=== PATIENT | female | born 2000 | race Caucasian/White ===

== ENCOUNTER 2024-02-25 14:17 | Emergency (ER) | payer MEDICAID ==
[~2024-02-25] VITALS: Ht 157.5 cm; Wt 72.0 kg
[2024-02-25 14:28] VITALS: O2SAT 100
[2024-02-25] MEDS: IBUPROFEN 600MG TABLET PO ONE (15:15)
[2024-02-25 16:39] VITALS: BP 124/57; PULSE 72; RESP 18; TEMP 36.55848; O2SAT 100
== END 2024-02-25 16:52 | disposition home or self-care (01) ==
LOC: ER 14:17
DX: S13.4XXA Sprain of ligaments of cervical spine, initial encounter (principal); X58.XXXA Exposure to other specified factors, initial encounter; Y93.89 Activity, other specified; Y92.410 Unspecified street and highway as the place of occurrence of the external cause; Y99.8 Other external cause status
CPT/HCPCS: 71045; 72040; 99284